=== PATIENT | male | born 1995 | race Hispanic/Latino ===

== ENCOUNTER 2018-12-06 19:04 | Emergency (ER) | payer OTHER ==
[2018-12-06] MEDS ORDERED: Adacel (T-DAP) 0.5 ML SYRINGE ONE (19:26)
[2018-12-06] MEDS ORDERED: Lidocaine 1% PF 5 ML VIAL ONE (19:31)
[2018-12-06] MEDS ORDERED: Triple Antibiotic Oint 1 GM Packet ONE (19:57)
== END 2018-12-06 20:10 | disposition home or self-care (01) ==
LOC: ERS 19:04
DX: S61.214A Laceration without foreign body of right ring finger without damage to nail, initial encounter (principal); F17.210 Nicotine dependence, cigarettes, uncomplicated; W26.8XXA Contact with other sharp object(s), not elsewhere classified, initial encounter
CPT/HCPCS: 12001; 90715; J2001